=== PATIENT | female | born 1995 | race Two or more races ===

== ENCOUNTER 2024-03-03 07:23 | Day surgery (SDC) | payer BC ==
[2024-03-02 15:07] VITALS: BMI 25.3
[2024-03-03] MEDS ORDERED: PROPOFOL 60 ML ONE (07:44)
[2024-03-03] MEDS ORDERED: Lidocaine 2% PF 100 mg/5 ml Syringe ONE (07:44)
[2024-03-03] MEDS ORDERED: Glycopyrrolate 0.2 MG/ML 5 ML SYRINGE ONE (08:26)
[2024-03-03] MEDS ORDERED: PHENYLEPHRINE-NS 100 MCG/ML 10 ML SYRINGE ONE (08:26)
== END 2024-03-03 09:38 | disposition home or self-care (01) ==
LOC: SDC 07:23
PROVIDERS: ATTEND Internal Medicine Gastroenterology
PROC: 0DJD8ZZ Inspection of Lower Intestinal Tract, Via Natural or Artificial Opening Endoscopic (ICD-10-PCS; principal; 2024-03-03)
DX: K92.1 Melena (principal); K64.8 Other hemorrhoids
CPT/HCPCS: J2001; J2704